=== PATIENT | male | born 1950 | race Caucasian/White ===

== ENCOUNTER 2025-08-15 06:26 | Day surgery (SDC) | payer MEDICARE, OTHER, SELFPAY | END 2025-08-15 12:43 | disposition home or self-care (01) | LOC: GI 06:26 | PROVIDERS: ATTENDING PHYSICIAN Student in an Organized Health Care Education/Training Program | DX: K63.5 Polyp of colon (principal); K63.89 Other specified diseases of intestine; D17.5 Benign lipomatous neoplasm of intra-abdominal organs; R19.4 Change in bowel habit; Z80.0 Family history of malignant neoplasm of digestive organs | CPT/HCPCS: 45385; 45380; 88305 ==